=== PATIENT | female | born 1980 | race Caucasian/White ===

== ENCOUNTER 2021-03-29 07:36 | Emergency (ER) | payer SELFPAY ==
[2021-03-29 07:48] VITALS: BP 119/81; PULSE 72; RESP 16; TEMP 36.8; O2SAT 100; BMI 22.3
[2021-03-29 07:59] VITALS: PULSE 70
--- NOTE | 2021-03-29 08:03 | ED_ITS ---
HPI - Extremity Injury (Lower) General: Chief Complaint: Extremity Injury, Lower Stated Complaint: LEFT LEG PAIN Time Seen by Provider: 03/29/21 07:58 Source: patient Mode of arrival: ambulatory Limitations: no limitations History of Present Illness: HPI Narrative: Patient is a nice 40-year-old female who presents to ED today with a complaint of left lower leg pain. Patient tells me yesterday evening she was up on a chair putting her child to bed in a top bunk bed when she fell and struck the anterior aspect of her left lower leg. She sustained a superficial laceration that she irrigated and closed with butterfly bandages. She is complaining of pain and swelling to the anterior aspect of her leg. Patient is ambulatory with a limp. complaint: leg injury Onset (ago): hour(s) Place: home Severity: moderate Exacerbating factors: weight bearing and palpation Context: fall Associated symptoms: Reports no associated symptoms Other symptoms: none Review of Systems Card: Denies: chest pain Resp: Denies: dyspnea Musc: Reports: extremity pain (L tib/fib) Skin/Breast: Reports: other (laceration/abrasion L lower leg) Neuro: Reports: numbness in extremities and sensory changes PFSH ED PFSH: Surgical History (Updated 09/18/19 @ 16:26 by Jorge A Anders MD) History of laparoscopic cholecystectomy (~07/2019) Family History Denies family history of Anesthesia complication Bleeding disorder Social History Smoking and tobacco status: never smoked Second hand smoke exposure: No Smoking risk assessment/counseling performed?: No Alcohol intake: never Desire information about alcohol rehabilitation?: No Counseling given: No Desire information about substance/drug rehabilitation?: No Counseling given: No Adopted: No Caregiver/support person: Yes Lives independently: Yes Household members: family Housing: House Marital status: Number of children: 2 Highest education level completed: High School Graduate service: No Current occupational status: employed Current occupational exposures/hazards: No Pets and animals: No History of recent travel: No Leisure activites: exercise Sexually active: Yes Current gender identity: Female Pat/Catholic: None Special pat needs: No Agree to transfusion: Yes Financial difficulty paying for basics: Decline to Answer Female Reproductive History: Date of last menstrual period: 03/20/21 Physical Exam Const: COMMON NORMALS: no acute distress, average body habitus, patient oriented x3, no limitations, healthy appearing, alert and well nourished Extremity: GENERAL: Yes normal exam except as noted OTHER: pt has pain/swelling to L anterior mid tibia; she has a 3cm superficial laceration/abrasion that is held together with butterfly strips; no redness/drainage/signs of infection at this time Neuro: COMMON NORMALS: patient oriented x3 SENSORIUM/ORIENTATION: Yes alert GAIT: Yes Other gait observations present (limping gait secondary to L leg pain) Skin: NARRATIVE SKIN EXAM: see extremity for pertinent skin findings Course Vital Signs: Vital signs: Vital Signs Temperature 98.2 F 03/29/21 07:48 Pulse Rate 70 03/29/21 07:59 Respiratory Rate 16 03/29/21 07:48 Blood Pressure 119/81 03/29/21 07:48 Pulse Oximetry 100 03/29/21 07:48 MDM - Extremity Injury (Lower) Imaging Data^: XR L tib/fib: Radiologist's impression: [address] [address] XRay Report Signed Patient: Heidi Garcia Unit #: [id number] : 1980 Age/Sex: 40 / F ADM Date: 03/29/21 Loc: ER Room/Bed: Attending Dr: Ordering Provider/Ordering MD: Hannah Phillips Date of Service: 03/29/21 Procedure(s): XR tibia fibula LT 2V 32610 Accession Number(s): [id number] Report Number: [id number] WS: [id number] XR tibia fibula LT 2V 73116 REASON FOR EXAM: trauma FINDINGS: No fracture or other focal bony abnormality of the left tibia and fibula. No soft tissue abnormality identified. XR/XR tibia fibula LT 2V [id number] IMPRESSION: No acute abnormality. Dictated By: Darin Sequeira Jr, MD Signed By: Darin Sequeira Jr, MD Signed Date/Time: 03/29/21823 DD/ 2 Discharge Plan Discharge Patient Disposition: Home Clinical Impression: Contusion of left tibia Condition: Stable Prescriptions: No Action bupropion HCl [Wellbutrin XL] 300 mg tablet extended release 24 hr 300 mg PO QAM RF: 0 topiramate [Topamax] 50 mg tablet 50 mg PO BID RF: 0 ondansetron HCl [Zofran] 4 mg tablet 4 mg PO Q8H PRNRF: 0 Discharge Orders: Discharge ED (Routine); Ordered 03/29/21 Ordered By: Hannah Phillips Referrals: Prisca Villasenor MD [Primary Care Provider] - Patient Instructions: Contusion in Adults (ED), RICE Therapy (ED) Coding Level of Care Code ED Supervisor Of Guidance And Testing for Chg Fwd Exam Expanded Problem Focused
--- NOTE | 2021-03-29 08:03 | XR_ITS ---
WS: [id number] XR tibia fibula LT 2V [id number] REASON FOR EXAM: trauma FINDINGS: No fracture or other focal bony abnormality of the left tibia and fibula. No soft tissue abnormality identified. XR/XR tibia fibula LT 2V [id number] IMPRESSION: No acute abnormality.
[2021-03-29] MEDS: tetanus-diphtheria tox (adult) 0.5 mL SDV IM (08:27)
== END 2021-03-29 08:31 | disposition home or self-care (01) ==
PROVIDERS: Emergency Provider Physician Assistant; PCP Family Medicine
DX: S80.12XA Contusion of left lower leg, initial encounter (principal); W07.XXXA Fall from chair, initial encounter
CPT/HCPCS: 73590; 90471; 90714; 99282

== ENCOUNTER 2022-12-16 15:27 | Outpatient (CLI) | payer MEDICAID, SELFPAY ==
--- NOTE | 2022-12-16 15:38 | MM_ITS ---
WS: [id number] BILATERAL 3D TOMOSYNTHESIS DIGITAL SCREENING MAMMOGRAPHY WITH CAD CLINICAL INFORMATION: SCREENING HISTORY: Screening mammogram. LEFT breast soreness COMPARISON: None. TECHNIQUE: Bilateral CC and MLO views. FINDINGS: The breasts are composed of heterogeneous fibroglandular density tissue, which can limit the detectio n of small underlying mass lesions. No suspicious mass, asymmetry, calcifications, or architectural d istortion. No evidence of malignancy. Incidental punctate calcifications. MM/[place] [id number] IMPRESSION: BI-RADS: 2-Benign FOLLOW UP: 1 Year Follow-up Recommend return to annual screening mammography.
== END 2022-12-16 15:28 | disposition home or self-care (01) ==
LOC: RAD 15:35
PROVIDERS: PCP Nurse Practitioner Family; Visit Provider Nurse Practitioner Family
DX: Z12.31 Encounter for screening mammogram for malignant neoplasm of breast (principal)
CPT/HCPCS: 77063; 77067

== ENCOUNTER 2024-12-30 14:53 | Outpatient (CLI) | payer MEDICAID, SELFPAY ==
--- NOTE | 2024-12-30 14:54 | MM_ITS ---
WS: [id number] BILATERAL 3D TOMOSYNTHESIS DIGITAL SCREENING MAMMOGRAPHY WITH CAD CLINICAL INFORMATION: SCREEN HISTORY: Screening mammogram. No current complaints. COMPARISON: 2022 TECHNIQUE: Bilateral CC and MLO views. FINDINGS: The breasts are composed of heterogeneous fibroglandular density tissue, which can limit the detection of small underlying mass lesions. Lobulated asymmetric nodular density retroareolar LEFT breast appears new or more prominent compared to previous. Recommend further evaluation with LEFT breast diagnostic mammography and ultrasound. Unremarkable RIGHT breast. MM/MM [facility] tomosynthesis [id number] IMPRESSION: DENSITY: There are scattered areas of fibroglandular density. BI-RADS: 0 - Incomplete: Need additional imaging evaluation FOLLOW UP: Need Additional Imaging Recommend LEFT breast diagnostic mammography and ultrasound
== END 2024-12-30 14:54 | disposition home or self-care (01) ==
LOC: RAD 14:53
PROVIDERS: PCP Nurse Practitioner Family; Visit Provider Nurse Practitioner Family
DX: Z12.31 Encounter for screening mammogram for malignant neoplasm of breast (principal); R92.323 Mammographic fibroglandular density, bilateral breasts; N63.20 Unspecified lump in the left breast, unspecified quadrant
CPT/HCPCS: 77063; 77067

== ENCOUNTER 2025-01-13 13:55 | Outpatient (CLI) | payer MEDICAID, SELFPAY ==
--- NOTE | 2025-01-13 14:00 | MM_ITS ---
WS: [id number] LEFT 3D TOMOSYNTHESIS DIGITAL MAMMOGRAPHY WITH CAD CLINICAL INFORMATION: L BREAST ABNORMAL MAMMOGRAM HISTORY: Additional views COMPARISON: 2024 TECHNIQUE: 2 views of the left breast were obtained. FINDINGS: The left breast is composed of heterogeneous fibroglandular density tissue, which can limit the detection of small underlying mass lesions. Subareolar nodularity similar to previous. Ultrasound is pending. ULTRASOUND BREAST LEFT TECHNIQUE: Ultrasound left breast focused area of concern. CLINICAL INFORMATION: L BREAST ABNORMAL MAMMOGRAM FINDINGS: Subareolar ultrasound LEFT breast. Dense underlying parenchymal tissue. No suspicious lesions to target for biopsy. Tiny incidental cyst at the 2 o'clock position 2 cm from the nipple. Retroareolar incidental ductal ectasia. MM/MM diag [place] tomosynthesis [id number] IMPRESSION: DENSITY: The breasts are heterogeneously dense, which may obscure small masses. BI-RADS: 2 - Benign FOLLOW UP: 1 Year Follow-up Recommend return to annual screening mammography.
== END 2025-01-13 13:56 | disposition home or self-care (01) ==
PROVIDERS: PCP Nurse Practitioner Family; Visit Provider Nurse Practitioner Family
DX: R92.8 Other abnormal and inconclusive findings on diagnostic imaging of breast (principal); R92.333 Mammographic heterogeneous density, bilateral breasts; N60.42 Mammary duct ectasia of left breast
CPT/HCPCS: 76642; 77061; G0279

== ENCOUNTER 2025-08-08 15:19 | Outpatient (CLI) | payer MEDICAID, SELFPAY ==
--- NOTE | 2025-08-08 15:25 | XR_ITS ---
WS: [id number] XR hand RT min 3V* [id number] REASON FOR EXAM: PAIN IN JOINTS OF RIGHT HAND FINDINGS: No fracture or focal bone lesion. No periosteal reaction or bone erosion. Joint spaces of the hand are intact and well preserved. XR/XR hand RT min 3V* [id number] IMPRESSION: No significant bone or joint abnormality.
--- NOTE | 2025-08-08 15:25 | XR_ITS ---
WS: [id number] XR hand LT min 3V* [id number] REASON FOR EXAM: PAIN IN JOINT OF LEFT HAND FINDINGS: No fracture or focal bone lesion. No bone erosion or periosteal reaction. The joint spaces of the hand are intact and well preserved. XR/XR hand LT min 3V* [id number] IMPRESSION: No significant bone or joint abnormality.
== END 2025-08-08 15:20 | disposition home or self-care (01) ==
LOC: RAD 15:20
PROVIDERS: PCP Nurse Practitioner Family; Visit Provider Family Medicine
DX: M25.541 Pain in joints of right hand (principal); M25.542 Pain in joints of left hand
CPT/HCPCS: 73130